=== PATIENT | female | born 1985 | race Asian ===

== ENCOUNTER 2016-10-22 22:56 | Emergency (ER) | payer OTHER ==
[2016-10-23] MEDS ORDERED: Tetan/Diph/Pertus SYR(Tdap)* 0.5 ML SYR(BOOSTRIX) use SYR IM ONE (01:16)
--- NOTE | 2016-10-23 01:57 | ED ---
Bite Injury/Animal - HPI Summary HPI Summary: 31F presents with lip laceration from a dog bite today. She states her friends dog became annoyed and bite her in the face. She denies any tooth injury. Her friends dog rabies is up to date. Her last tetanus was 11 years ago. She denies any other injury. She has no allergies to medication. - History of Current Complaint Chief Complaint: EDAnimalBite Stated Complaint: LIP LAC Time Seen by Provider: 10/23/16 00:31 Pain Intensity: 4 - Allergies/Home Medications Allergies/Adverse Reactions: Allergies Allergy/AdvReac Type Severity Reaction Status Date / Time No Known Allergies Allergy Verified 10/22/16 23:01 PMH/Surg Hx/FS Hx/Imm Hx Endocrine/Hematology History: Denies: Hx Anticoagulant Therapy Cardiovascular History: Denies: Hx Hypertension Infectious Disease History: No Infectious Disease History: Denies: Traveled Outside the [place] in Last 30 Days - Family History Known Family History: Negative: Cardiac Disease - Social History Alcohol Use: Weekly Substance Use Type: Reports: None Smoking Status (MU): Never Smoked Tobacco Review of Systems Negative: Fever Negative: Chest Pain Negative: Shortness Of Breath Positive: Other - lip laceration All Other Systems Reviewed And Are Negative: Yes Physical Exam Triage Information Reviewed: Yes Vital Signs On Initial Exam: Initial Vitals Temp Pulse Resp BP Pulse Ox 98.4 F 63 16 115/59 98 10/22/16 23:01 10/22/16 23:01 10/22/16 23:01 10/22/16 23:01 10/22/16 23:01 Vital Signs Reviewed: Yes Appearance: Positive: Well-Appearing Skin: Positive: Warm, Dry, Other - lower lip laceration that is 1cm long through ly border, not a through and through Head/Face: Positive: Normal Head/Face Inspection Eyes: Positive: Normal, EOMI, SHARON, Conjunctiva Clear ENT: Positive: Normal ENT inspection, Pharynx normal, TMs normal Respiratory/Lung Sounds: Positive: Clear to Auscultation, Breath Sounds Present Cardiovascular: Positive: Normal, RRR Procedures - Laceration/Wound Repair 1 Location: Other - lip Description: Irregular Anesthesia: Digital, 1.0% Length, Depth and Shape: 1cm through ly border Irrigated w/ Saline (ccs): 150 Closure: Single Layer Suture Type: Prolene - 6-0, Chromic - 6-0 Number of Sutures: 5 - 2 prolene and 3 chromic gut Layer Closure?: No Diagnostics - Vital Signs Vital Signs Temp Pulse Resp BP Pulse Ox 10/22/16 23:03 98.4 F 63 16 115/59 98 10/22/16 23:01 98.4 F 63 16 115/59 98 - Laboratory Lab Statement: Any lab studies that have been ordered have been reviewed, and results considered in the medical decision making process. Bite Injury Course/Dx - Course Course Of Treatment: 31F presents with lip laceration from a dog bite today. She states her friends dog became annoyed and bite her in the face. She denies any tooth injury. Her friends dog rabies is up to date. Her last tetanus was 11 years ago so gave tetanus. laceration is not through and through. extensively irrigated it out after performed mental block. aligned ly border and placed 3 chromic gut and 2 nylon sutures. told to follow up with plastic surgery if does not like how looks. placed on augmentin and told to watch for signs of infection. patient understands and agrees with plan. - Diagnoses Differential Diagnosis/HQI/PQRI: Positive: Laceration, Puncture, Other - abrasion Provider Diagnosis: Lip laceration, Dog bite Discharge - Discharge Plan Condition: Good Disposition: HOME Prescriptions: Amoxicillin/Clavulanate TAB* [Augmentin TAB 875*] 875 mg PO BID #9 tab Patient Education Materials: Care For Your Stitches (ED) Referrals: [facility] [Primary Care Provider] - Gilberto Dunn MD [Medical Doctor] - Additional Instructions: Keep area clean Avoid acidic food Take antibiotic twice a day for 5 days Follow up with plastic surgery Return to ED, urgent care, or primary in 5 days to have sutures removed Return to ED if develop any signs of infection such as spreading redness, fever , or any new or worsening symptoms
[2016-10-23] MEDS ORDERED: Amoxicillin/Clavulanate TAB* 875 MG PO ONE (01:58)
[2016-10-23 02:17] VITALS: BP 103/51
== END 2016-10-23 02:17 | disposition home or self-care (01) ==
LOC: ED 22:56
DX: S01.511A Laceration without foreign body of lip, initial encounter (principal); W54.0XXA Bitten by dog, initial encounter; Y93.89 Activity, other specified; Y92.9 Unspecified place or not applicable; Z23 Encounter for immunization
CPT/HCPCS: 12011; 90471; 90715; 99282; A9270-GY